=== PATIENT | female | born 1975 | race Caucasian/White ===

== ENCOUNTER → 2024-02-01 | Outpatient (CLI) | payer OTHER, SELFPAY ==
--- NOTE | 2024-02-01 09:08 | US_ITS ---
STUDY: ULTRASOUND BREAST - LEFT REASON FOR EXAM: Female, 49 years old. Left axillary adenopathy. History of prior bilateral mastectomy and bilateral breast implants. TECHNIQUE: Axial and longitudinal images of the LEFT breast were performed with a high resolution ultrasound transducer. # OF IMAGES: 34 COMPARISON: None. FINDINGS: LEFT Breast: Imaging of the left axilla was obtained. There is a 1.5 cm x 1.2 cm x 1.1 cm hypoechoic nodular density with increased vascularity. Adjacent to this, a similar appearing hypoechoic nodule measuring 1.2 cm x 1.1 cm x 0.7 cm is seen with increased vascularity. These are not normal-appearing lymph nodes. Biopsy recommended. US/Breast Limited Unilateral IMPRESSION: 2 adjacent hypoechoic nodules in the left axilla as described. Biopsy recommended. ASSESSMENT CATEGORY: BIRADS Category 4: Suspicious - Biopsy Should Be Considered. A letter regarding these results will be sent to the patient by the facility within 30 days. Electronically Signed: Sony Harris MD at 16:33 EDT ,
== END | disposition home or self-care (01) ==
PROVIDERS: PCP Nurse Practitioner Women's Health; Referring Provider Nurse Practitioner Women's Health; Visit Provider Nurse Practitioner Women's Health
DX: R59.0 Localized enlarged lymph nodes (principal); Z85.3 Personal history of malignant neoplasm of breast; Z90.12 Acquired absence of left breast and nipple
CPT/HCPCS: 76642

== ENCOUNTER → 2024-02-06 | Outpatient (CLI) | payer OTHER, SELFPAY ==
--- NOTE | 2024-02-06 | LYMN_PTH ---
PATIENT: TAQUERIA CRAWLEY LOC: [facility] U#:[id number] AGE/SX: 49/F ROOM: RE02/06/[address]: Dr. Ruth Sam MD : 1975 BED: DIS: 02/06/2024 SPEC #: [id number] RECD: 02/06/24 16:06 STATUS: HARINDER LETITIA #: [id number] MARLENI: 02/06/24 00:[address]: Ruth Sam DEPT: SURGICAL PATHOLOGY RECD BY: Cassi Owen ENTERED: 02/07/24 08:08 SP TYPE: LYMPH NODE OTHR DR: JOSHUA CHENG Tissues: LYMPH NODE BIOPSY Procedures: Surgery Specimen Level IV HEADER OPERATION: Biopsy of left lymph nodes PRE-OP DIAGNOSIS: Recent left axillary, history of breast cancer 2016 TISSUE SUBMITTED: Left axillary lymph node MICROSCOPIC DIAGNOSIS Left axillary lymph node, core biopsy: Fragments of benign lymphoid tissue, negative for metastatic carcinoma. See comment. NE/ 02/09/2024 COMMENT Immunohistochemistry ([id number]) supports the above diagnosis. Clinical correlation and appropriate follow up are necessary. This case has been reviewed in consultation with Dr. Negron who concurs with the above diagnosis. MICROSCOPIC DESCRIPTION Slides are reviewed. GROSS DESCRIPTION Received fresh without fixative is one container labeled with the patient's name and designated Left axillary lymph node. The specimen consists of multiple irregular fragments of light vidal soft tissue that in aggregate measure 1.5 x 0.1 x 0.1cm. The specimen is totally submitted in one cassette. / 02/07/2024 TC:5 CPT:37658
--- NOTE | 2024-02-06 | IMM_PTH ---
PATIENT: TAQUERIA CRAWLEY LOC: [facility] U#:[id number] AGE/SX: 49/F ROOM: RE02/06/[address]: Dr. Ruth Sam MD : 1975 BED: DIS: 02/06/2024 SPEC #: [id number] RECD: 02/12/24 09:37 STATUS: HARINDER REQ #: [id number] MARLENI: 02/06/24 00:[address]: Ruth Sam DEPT: IMMUNOHISTOCHEMISTRY RECD BY: Jaya Dorman ENTERED: 02/12/24 09:37 SP TYPE: IMMUNO OTHR DR: JOSHUA CHENG Tissues: Lymph node, NOS Procedures: BCL-2 (add) CD20 (add) CD3 (add) CD45 (add) CD5 (add) CD79A (add) CK7 (add) KI-67 (add) Pankeratin (initial) PHYSICIAN & INSTITUTION [facility] [id number] SPECIMEN INFORMATION: Tissue Source: Left axillary lymph node Clinical Info: Recent left axillary, history of breast cancer 2016 Specimen Number: [id number] CPT code: 44101,83902m6 METHODOLOGY: Deparaffinized sections of prefer/formalin-fixed tissue or PAP/DQ stained slides are incubated with monoclonal/polyclonal antibodies/oligonucleotide probes. Localization is made via biotin free immunoperoxidase method. Appropriate controls are performed and reacted as expected. Results on target cell population are indicated in the following table: RESULTS: ANTIBODY / CLONE RESULT AE1-3 (AE1/AE3/PCK26) negative CK7 (OV-TL12/30) negative CD3 (PS1) positive CD5 (SP10) positive CD45 (RP2/18) positive CD79a (11E3) positive BCL-2 (bcl-2/100/D5) negative in germinal center Ki-67 (30-9) positive, reactive pattern These tests were developed and their performance characteristics determined by [facility]. They may not have been cleared or approved by the [place]. Food and Drug Administration. The FDA has determined that such clearance or approval is not necessary. The above immunohistochemical/dualISH markers are ordered and reviewed by the Pathologist. INTERPRETATION: Left axillary lymph node, core biopsy: Fragments of benign lymph node tissue, negative for metastatic carcinoma. NE/ 02/12/2024
== END | disposition home or self-care (01) ==
PROVIDERS: PCP Nurse Practitioner Women's Health; Referring Provider Surgery; Visit Provider Surgery
DX: Z85.3 Personal history of malignant neoplasm of breast (principal)
CPT/HCPCS: 88305; 88341; 88342